=== PATIENT | female | born 1980 | race Hispanic/Latino ===

== ENCOUNTER 2020-11-30 08:33 | Outpatient (CLI) | payer OTHER, SELFPAY ==
[2020-11-30 08:54] LABS: Hematocrit 45.6 % (37.0-47.0); Hemoglobin 14.9 g/dL (12.0-15.0)
== END 2020-11-30 08:34 | disposition home or self-care (01) ==
PROVIDERS: Visit Provider Obstetrics & Gynecology
DX: N92.6 Irregular menstruation, unspecified (principal); Z01.818 Encounter for other preprocedural examination
CPT/HCPCS: 36415; 85014; 85018

== ENCOUNTER → 2020-12-05 03:45 | Outpatient (CLI) | payer OTHER, SELFPAY ==
[2020-12-05 20:31] LABS: SARS-CoV-2 RNA PCR Negative
== END ==
PROVIDERS: Visit Provider Obstetrics & Gynecology
DX: Z01.812 Encounter for preprocedural laboratory examination (principal); Z20.822 Contact with and (suspected) exposure to COVID-19
CPT/HCPCS: C9803; U0003; U0005

== ENCOUNTER 2020-12-08 02:03 | Day surgery (SDC) | payer OTHER, SELFPAY ==
[2020-11-27 14:02] VITALS: BMI 28.3
--- NOTE | 2020-12-06 12:24 | PM.IMHP ---
H&P: HPI History of Present Illness Date/Time: 12/06/20 12:24 40-year-old female admitted for hysteroscopy and dilatation and curettage secondary to bleeding. Ultrasound shows a possible fibroid or polyp in the uterus. control pills have been unhelpful. Risks and benefits reviewed Chief Complaint: vaginal bleeding Review of Systems Review of Systems: All systems reviewed & are unremarkable except as noted in HPI and below PMFSH Family History Family History Other Diabetes mellitus Social History Social History Smoking status: Never smoker Alcohol intake: never Substance use: never Substance use type: does not use Spiritual care concerns: No Meds Home Medications and Allergies Home Medications Medication Instructions Recorded Confirmed Type multivitamin 1 tablet PO DAILY 11/27/20 11/27/20 History norgestrel-ethinyl estradiol 1 tablet PO HS 11/27/20 11/27/20 History [Betzaida (28)] Allergies Allergy/AdvReac Type Severity Reaction Status Date / Time Penicillins Allergy Unknown Rash Verified 11/27/20 14:01 Exam Const: General: no acute distress Eyes: General: appearance normal, both eyes and all related structures Neck: Neck: supple and no JVD Thyroid: thyroid normal Resp: Effort & Inspection: normal respiratory effort Auscultation: clear to auscultation bilaterally Cardio: Rate: regular rate Rhythm: regular rhythm GI: Inspection: non-distended GI Palp: Yes Soft to palpation, No Tenderness to palpation present (GI) and No Guarding due to palpation present (GI) Auscultation: normal bowel sounds : External Female Exam: normal external appearance Speculum Exam - Vagina: normal appearance of the vagina Speculum Exam - Cervix: Cervical os closed Bimanual exam- vagina & uterus: enlarged Bimanual Exam- Adnexa, other: normal adnexae Skin: General skin exam: no rashes or lesions noted Extrem: General: normal to inspection and no edema Psych: Mental Status: mental status grossly normal Affect: normal affect Assessment and Plan Additional Plan impression: Bleeding refractory to medical therapy Plan: Hysteroscopy/dilatation curettage
--- NOTE | 2020-12-07 10:57 | WPDANESEPPF ---
Anes - Initial Pre Proc Eval Procedure: Operation Date: 12/08/20 15:15 Proposed Procedures p Hysteroscopy Dilation and Curettage With Polypectomy - Leonardo Madrid MD Date/Time: 12/07/20 10:57 Surgeon: Leonardo Madrid MD Pre Op Diagnosis: irregular bleeding, cervical polyp Patient Data Age: 40 Gender: F Height: 1.7 m Weight: 82 kg Allergies Allergy/AdvReac Type Severity Reaction Status Date / Time Penicillins Allergy Severe Rash Verified 12/08/20 13:08 Home Medications Medication Instructions Recorded Confirmed Type multivitamin 1 tablet PO DAILY 11/27/20 12/08/20 History norgestrel-ethinyl estradiol 1 tablet PO HS 11/27/20 12/08/20 History [Betzaida (28)] hydrocodone-acetaminophen 1 tablet PO Q4H PRN #20 tablet 12/08/20 Rx Patient hx anesthesia problems: none Family hx anesthesia problems: none PMFSH Past Medical History Medical History (Updated 12/08/20 @ 13:34 by Craig Hester MD) Overweight (BMI 25.0-29.9) Family History Family History Other Diabetes mellitus Social History Social History Smoking status: Never smoker Alcohol intake: current Substance use: never Substance use type: does not use Living arrangements: with family Spiritual care concerns: No Anes - Eval Final PreProcedure Day of Procedure 12/07/20 10:57 Patient weight: overweight Heart: regular rate and rhythm Lungs: clear to auscultation and normal air movement Airway: Mallampati scale class II Neurological: alert and oriented Last oral intake: >/= 8 hours ASA classification: II Emergent: no Anesthetic plan: proceed Anesthesia type and monitoring: general GIVS and LMA Informed Consent: The patient's anesthetic plan and its attendant risks and benefits were discussed with the patient/family/POA. Questions were solicited and answers provided to the satisfaction of the patient/family/POA.
--- NOTE | 2020-12-08 06:07 | WPDHPUPDATE1 ---
History and Physical Update Update Date/Time: 12/08/20 06:07 History and Physical has been reviewed, including an updated exam of the patient. There are NO changes in the patient's condition. Risks, benefits, and alternatives have been discussed and questions answered. Patient agrees to proceed with procedure.
[2020-12-08] MEDS: ACETAMINOPHEN 500 MG TABLET 1000 MG PO (13:38)
[2020-12-08] MEDS: LACTATED RINGERS 1,000 ML 30 ML IV CONT ×2 (13:38→14:30)
[2020-12-08 13:41] VITALS: BP 114/64; PULSE 65; RESP 16; TEMP 36.6; O2SAT 99
--- NOTE | 2020-12-08 14:26 | P.OP_ITS ---
Procedure Note - Detailed Date of procedure: 12/08/20 Pre-op diagnosis: irregular bleeding, cervical polyp Surgeon: Leonardo Madrid MD Postop diagnosis: Irregular bleeding/endometrial polyp Procedure: Hysteroscopy: Dilatation curettage /polypectomy Anesthesia: IV sedation and local Findings: 2 small uterine polyps. Retroverted uterus sounded to 8cm. Normal- appearing cervical ostia Complications: None EBL: 5cc Description of procedure: The patient was prepped and draped in normal sterile fashion placed in the dorsal lithotomy position. Under excellent IV sedation weighted speculum placed in posterior fornix vagina. Anterior lip of the cervix was grasped with a single-tooth tenaculum. 2.5cc of 1% xylocaine anesthesia placed at 2, 4, 8, 10:00 a.m. of the cervix. Uterus sounded to 8cm and was noted to be retroverted. Serial dilatation with fragmented dilators performed followed by passage of the 5mm visualizing hysteroscope using normal saline as visualizing medium. Two small cervical polyp endocervical polyps were seen and these were removed piecemeal with polyp forceps. The uterus was then scraped over the entire 360? until a good grating sound was heard. When no further tissue removed the instruments removed. All sponge, needle, instrument counts were correct. There were no immediate complications
[2020-12-08 14:30] VITALS: BP 89/58; PULSE 57; RESP 16; O2SAT 97
[2020-12-08] MEDS: LIDOCAINE HCL 1% LOCAL INJ 10 ML VIAL 50 ML INFILTRATE (14:30)
[2020-12-08 14:43] VITALS: BP 88/58; PULSE 58; RESP 16; O2SAT 100
[2020-12-08 15:00] VITALS: BP 91/56; PULSE 50; RESP 16; O2SAT 100
[2020-12-08 15:20] VITALS: BP 103/76; PULSE 54; RESP 16; O2SAT 100
== END 2020-12-08 15:23 | disposition home or self-care (01) ==
PROVIDERS: Visit Provider Obstetrics & Gynecology
PROC: 0U5B8ZZ Destruction of Endometrium, Via Natural or Artificial Opening Endoscopic (ICD-10-PCS; CPT 58563; principal; 2020-12-08 15:15)
DX: N92.6 Irregular menstruation, unspecified (principal); N85.4 Malposition of uterus; N84.1 Polyp of cervix uteri
CPT/HCPCS: 58558; 36415; 85014; 85018; 88305; A9270; C9803; J1100; J1885; J2250; J2405; J2704; J3010; J7120; U0003; U0005